=== PATIENT | female | born 1950 | race Caucasian/White ===

== ENCOUNTER → 2016-12-02 | Outpatient (CLI) | payer MEDICARE, OTHER ==
[~2016-12-02] MED LIST: ALENDRONATE SOD70 M1 PO; ATENOLOL100 MG PO; FLEX-A-MIN; FLEXERIL 1010 MG/TAB PO; LIPITOR40 MG PO; MICARDIS40 MG PO; NORCO 325 MG-51 TAB PO; OMEPRAZOLE D/R20 MG PO; PERCOCET 325 MG1 TA2 PO; PHENERGAN 25 TA25 MG PO; VITAMIN D32000 IU PO; [UNRECOGNIZED DRUG - OTHER] PO
== END ==
LOC: MC.RAD 08:20
DX: Z12.31 Encounter for screening mammogram for malignant neoplasm of breast (principal); N63 Unspecified lump in breast

== ENCOUNTER → 2016-12-03 | Outpatient (CLI) | payer MEDICARE, OTHER | LOC: MC.RAD 13:48 | DX: D48.61 Neoplasm of uncertain behavior of right breast (principal) ==

== ENCOUNTER → 2016-12-12 | Outpatient (CLI) | payer MEDICARE, OTHER | LOC: MC.RAD 12:48 | DX: D24.1 Benign neoplasm of right breast (principal) ==

== ENCOUNTER 2017-01-20 16:33 | Emergency (ER) | payer MEDICARE, OTHER ==
[~2017-01-20] VITALS: Ht 157.5 cm; Wt 57.7 kg
[~2017-01-20 16:33] MED LIST changes: -FLEXERIL 1010 MG/TAB PO; -PERCOCET 325 MG1 TA2 PO
[2017-01-20 16:36] VITALS: TEMP 98
[2017-01-20] MEDS ORDERED: FLEXERIL 1010 MG/TAB PO (19:16)
[2017-01-20] MEDS ORDERED: PERCOCET 325 MG1 TA2 PO (19:16)
[2017-01-20 19:30] VITALS: BP 122/85; PULSE 58
== END 2017-01-20 19:31 | disposition home or self-care (01) ==
LOC: COL.ER 16:33
DX: S22.41XA Multiple fractures of ribs, right side, initial encounter for closed fracture (principal); W10.9XXA Fall (on) (from) unspecified stairs and steps, initial encounter; F17.210 Nicotine dependence, cigarettes, uncomplicated
CPT/HCPCS: A9284; J1885; J2360

== ENCOUNTER → 2018-02-01 | Outpatient (CLI) | payer MEDICARE, OTHER ==
[~2018-02-01] MED LIST changes: +FLEXERIL 1010 MG/TAB PO; +PERCOCET 325 MG1 TA2 PO
== END ==
LOC: MC.RAD 10:29
DX: Z12.31 Encounter for screening mammogram for malignant neoplasm of breast (principal); Z98.890 Other specified postprocedural states

== ENCOUNTER → 2019-02-10 | Outpatient (CLI) | payer MEDICARE, OTHER | LOC: MC.RAD 09:22 | DX: Z12.31 Encounter for screening mammogram for malignant neoplasm of breast (principal) ==

== ENCOUNTER → 2020-02-13 | Outpatient (CLI) | payer MEDICARE, OTHER | LOC: MC.RAD 14:02 | DX: Z12.31 Encounter for screening mammogram for malignant neoplasm of breast (principal) ==

== ENCOUNTER → 2021-02-18 | Outpatient (CLI) | payer MEDICARE, OTHER | LOC: COL.RAD 13:00 | DX: Z12.2 Encounter for screening for malignant neoplasm of respiratory organs (principal); F17.210 Nicotine dependence, cigarettes, uncomplicated ==

== ENCOUNTER → 2021-02-21 | Outpatient (CLI) | payer MEDICARE, OTHER | LOC: MC.RAD 13:00 | DX: Z12.31 Encounter for screening mammogram for malignant neoplasm of breast (principal) ==

== ENCOUNTER → 2023-11-10 | Outpatient (CLI) | payer MEDICARE, OTHER ==
[~2023-11-10] MED LIST changes: +CALCIUM ANTAC1000 M2 PO; +COLACE 100100 MG/CAP PO; +EUTHYROX25 MCG PO; +FLONASEALLERGY NS; +PLETAL50 MG PO; +VITAMIN D31000 IU PO; +WELLBUTRIN SR150 M1 PO; +ZOFRAN ODT4 MG PO; +ZOLOFT 100MG100 MG PO
== END ==
LOC: COL.RAD 12:39
DX: J18.9 Pneumonia, unspecified organism (principal); F17.210 Nicotine dependence, cigarettes, uncomplicated

== ENCOUNTER 2023-12-22 09:09 | Day surgery (SDC) | payer MEDICARE, OTHER ==
[~2023-12-22] VITALS: Ht 154.9 cm; Wt 60.2 kg
[~2023-12-22 09:09] MED LIST changes: +ASPIRIN 81M81 MG/TA2 PO; +CARAFATE 1GM1 G PO; +COZAAR 50MG50 MG/TAB PO; +FLEXERIL5 MG PO; +FOSAMAX 70MG TA70 MG PO; +LIPITOR 40MG TA40 MG PO; +LOPRESSOR 550 MG/TAB PO; +LR 1,000 ML IV SCH; +MASON NATURAL2000 IU PO; +Ondansetron 4 MG/2 ML VIAL IV PRN; +PRILOSEC 20MG20 MG PO; +PROTONIX 40MG T40 MG PO; +STOOL SOFTENER100 M2 PO; +SYNTHROID 0.0.025 MG PO; +ZYRTEC 10MG10 MG PO
[2023-12-22] MEDS ORDERED: Lidocaine PF 2% (20 MG/ML) 5 ML VIAL ONE (09:53)
[2023-12-22 10:07] VITALS: BP 180/91; PULSE 53; TEMP 97.5
[2023-12-22 10:25] VITALS: BP 124/62; PULSE 55; TEMP 97.8
[2023-12-22 10:40] VITALS: BP 139/74; PULSE 54
--- NOTE | 2023-12-22 11:15 | NUR ---
1025-PT TO BAY 4 PER CART FROM PROCEDURE ROOM. PT AMBULATED TO CHAIR WITH STAND BY ASSIST. REPORT RECEIVED. VS OBTAINED. CALL LIGHT WITHIN REACH. PT TOLERATING WATER WITHOUT DIFFICULTY. 1030-DR LAGUNA IN ROOM DISCUSSING FINDINGS WITH PT. 1040-PT DENIES ANY NEEDS AT THIS TIME. 1055-IV DC'D AT THIS TIME. PT ABLE TO DRESS SELF WITHOUT ASSISTANCE. 1100-DISCHARGE EDUCATION COMPLETED WITH PT. VERBALIZED UNDERSTANDING OF HOME AND FOLLOW UP CARE. ALL QUESTIONS ANSWERED. DISCHARGE PAPERWORK GIVEN TO PT. 1115-PT OFF UNIT PER WHEELCHAIR. PT DISCHARGED TO HOME WITH HER PER PERSONAL VEHICLE.
== END 2023-12-22 11:15 | disposition home or self-care (01) ==
LOC: SDCO 09:09
DX: K44.9 Diaphragmatic hernia without obstruction or gangrene (principal); K29.70 Gastritis, unspecified, without bleeding; K22.11 Ulcer of esophagus with bleeding; F17.210 Nicotine dependence, cigarettes, uncomplicated
CPT/HCPCS: J2704; J7120

== ENCOUNTER → 2024-02-05 | Outpatient (CLI) | payer MEDICARE, OTHER ==
[~2024-02-05] MED LIST changes: -LR 1,000 ML IV SCH; -Ondansetron 4 MG/2 ML VIAL IV PRN
== END ==
LOC: MC.RAD 08:00
DX: Z12.31 Encounter for screening mammogram for malignant neoplasm of breast (principal)